=== PATIENT | male | born 1925 | race Caucasian/White ===

== ENCOUNTER → 2016-07-13 | Outpatient (CLI) | payer MEDICARE, OTHER ==
[~2016-07-13] VITALS: Ht 182.9 cm; Wt 71.3 kg
[~2016-07-13] MED LIST: ACET-784 PO; AMLO2.5T PO; APIX5TAB PO; CEFU250T87 PO; COLL30OI TP; DIPH25 PO; FOLI1TAB85 PO; HYDR-3965 PO; INSU3INS5 SQ; LIDE515C TP; MEGE40L PO; MIDO5 PO; MUPI1OIN5 TP; SEVEC800 PO; SULI150T PO; TRAZ-144 PO
[2016-07-13 08:21] VITALS: BP 142/68
== END | disposition home or self-care (01) ==
LOC: HBOWC 07:30
PROVIDERS: ATTEND Emergency Medicine
DX: L89.152 Pressure ulcer of sacral region, stage 2 (principal); E11.22 Type 2 diabetes mellitus with diabetic chronic kidney disease; I12.0 Hypertensive chronic kidney disease with stage 5 chronic kidney disease or end stage renal disease; N18.6 End stage renal disease; E11.52 Type 2 diabetes mellitus with diabetic peripheral angiopathy with gangrene; E11.40 Type 2 diabetes mellitus with diabetic neuropathy, unspecified; E66.9 Obesity, unspecified; J44.9 Chronic obstructive pulmonary disease, unspecified; Z95.0 Presence of cardiac pacemaker; Z89.511 Acquired absence of right leg below knee; Z89.512 Acquired absence of left leg below knee; Z99.2 Dependence on renal dialysis; Z79.01 Long term (current) use of anticoagulants; Z79.4 Long term (current) use of insulin; Z87.891 Personal history of nicotine dependence
CPT/HCPCS: 97597

== ENCOUNTER → 2016-07-27 | Outpatient (CLI) | payer MEDICARE, OTHER ==
[~2016-07-27] MED LIST changes: -AMLO2.5T PO; -CEFU250T87 PO; -TRAZ-144 PO
[2016-07-27 09:09] VITALS: BP 122/55
== END | disposition home or self-care (01) ==
LOC: HBOWC 07:45
PROVIDERS: ATTEND Emergency Medicine
DX: L89.152 Pressure ulcer of sacral region, stage 2 (principal); E11.22 Type 2 diabetes mellitus with diabetic chronic kidney disease; I12.0 Hypertensive chronic kidney disease with stage 5 chronic kidney disease or end stage renal disease; N18.6 End stage renal disease; Z99.2 Dependence on renal dialysis; J44.9 Chronic obstructive pulmonary disease, unspecified; S61.402D Unspecified open wound of left hand, subsequent encounter; E11.40 Type 2 diabetes mellitus with diabetic neuropathy, unspecified; E11.52 Type 2 diabetes mellitus with diabetic peripheral angiopathy with gangrene; E66.9 Obesity, unspecified; Z89.512 Acquired absence of left leg below knee; Z89.511 Acquired absence of right leg below knee; Z79.4 Long term (current) use of insulin; X58.XXXD Exposure to other specified factors, subsequent encounter